=== PATIENT | female | born 1955 | race Caucasian/White ===

== ENCOUNTER 2017-09-07 08:13 | Observation (INO) | payer OTHER ==
[~2017-09-07 08:13] MED LIST: CEFAZOLIN 1 GM INJ
[2017-09-07 09:41] LABS: ADD MAN DIFF? NO
[2017-09-07 09:44] LABS: BASOPHIL # 0.1 10^3/ul (0.0-0.1); BASOPHILS % 0.6 % (0.0-2.0); EOSINOPHILS # 0.4 10^3/ul (0.0-0.5); EOSINOPHILS % 5.1 % (0.0-7.0); HEMATOCRIT 29.8 % (37.0-47.0); HEMOGLOBIN 9.6 g/dl (12.0-16.0); LYMPHOCYTES # 2.3 10^3/ul (0.8-2.9); LYMPHOCYTES % 28.8 % (15.0-51.0); MEAN CORPUSCULAR HEMOGLOBIN 28.2 pg (29.0-33.0); MEAN CORPUSCULAR HGB CONC 32.2 g/dl (32.0-37.0); MEAN CORPUSCULAR VOLUME 87.4 fl (82.0-101.0); MEAN PLATELET VOLUME 10.2 fl (7.4-10.4); MONOCYTE # 0.7 10^3/ul (0.3-0.9); MONOCYTES % 8.8 % (0.0-11.0); NEUTROPHIL # 4.4 10^3/ul (1.6-7.5); NEUTROPHILS % 56.3 % (39.0-77.0); PLATELET COUNT 249 10^3/UL (140-415); RED BLOOD COUNT 3.41 10^6/ul (4.20-5.40); RED CELL DISTRIBUTION WIDTH 15.5 % (11.5-14.5)
[2017-09-07 09:44] LABS: WHITE BLOOD COUNT 7.8 10^3/ul (4.8-10.8)
[2017-09-07 09:49] LABS: HOLD TRANSMISSIONS 1
[2017-09-07 10:05] LABS: INR 0.98; PROTIME 13.1 Sec (11.9-14.9)
[2017-09-07 10:06] LABS: PARTIAL THROMBOPLASTIN TIME 27.8 Sec (25.0-35.0)
[2017-09-07 10:16] LABS: ALANINE AMINOTRANSFERASE 39 IU/L (13-69); ALBUMIN/GLOBULIN RATIO 1.17; ALKALINE PHOSPHATASE 81 IU/L (42-121); ANION GAP 17 (8-16); ASPARTATE AMINO TRANSFERASE 15 IU/L (15-46); BLOOD UREA NITROGEN 18 mg/dl (7-20); CALCIUM 8.9 mg/dl (8.4-10.2); CARBON DIOXIDE 24 mmol/L (21-31); CHLORIDE 106 mmol/L (97-110); CREATININE 0.79 mg/dl (0.44-1.00); GLUCOSE 166 mg/dl (70-220); POTASSIUM 4.5 mmol/L (3.5-5.1); SODIUM 142 mmol/L (135-144); TOTAL PROTEIN 7.4 g/dl (6.1-8.1)
[2017-09-07] MEDS: SOD CHLORIDE 0.9% 1,000 ML IV (12:40)
[2017-09-07] MEDS ORDERED: PROPOFOL 20 ML (12:49)
[2017-09-07] MEDS ORDERED: MIDAZOLAM 1 MG/ML 2 ML INJ (12:49)
[2017-09-07] MEDS ORDERED: ROCURONIUM 50 MG INJ (12:49)
[2017-09-07] MEDS ORDERED: EPHEDrine SULFATE 50 MG/5 ML SYG (12:49)
[2017-09-07] MEDS ORDERED: SUCCINYLCHOLINE CHLORIDE 100 MG/5 ML SYG IV (12:49)
[2017-09-07] MEDS ORDERED: ONDANSETRON 4 MG INJ (12:50)
[2017-09-07] MEDS: CEFAZOLIN 2 GM/50 ML (PMX) 50 ML IVPB (13:15)
[2017-09-07] MEDS ORDERED: CLINDAMYCIN 600 MG/D5W (PMX) 50 ML IVPB (13:34)
[2017-09-07] MEDS ORDERED: ONDANSETRON 4 MG INJ IV (14:30)
[2017-09-07] MEDS: hydrALAzine 20 MG INJ IV (14:55)
[2017-09-07] MEDS: ONDANSETRON 4 MG INJ IV (14:56)
[2017-09-07] MEDS: HYDROmorphONE (0.2 MG/ML) 10ML SYG IV ×2 (14:56→15:07)
[2017-09-07] MEDS ORDERED: LABETALOL HCL 20MG INJ IV (15:00)
[2017-09-07] MEDS ORDERED: MEPERIDINE 25 MG INJ IV (15:00)
[2017-09-07] MEDS ORDERED: LORAZEPAM 2 MG INJ IV (15:00)
[2017-09-07] MEDS ORDERED: HYDROmorphONE (0.2 MG/ML) 10ML SYG IV (15:00)
[2017-09-07] MEDS ORDERED: FENTAnyl 50 MCG/ML VIAL IV ×2 (15:00)
[2017-09-07] MEDS ORDERED: METOCLOPRAMIDE 10 MG INJ IV (15:00)
[2017-09-07] MEDS: DIPHENHYDRAMINE 50 MG INJ IV (15:10)
[2017-09-07 16:25] LABS: HEMOGLOBIN A1C 8.4 % (0-5.9)
[2017-09-07] MEDS ORDERED: GLUCOSE GEL 15 GRAM TUBE BUCCAL (16:30)
[2017-09-07] MEDS ORDERED: GLUCAGON 1 MG INJ IM (16:30)
[2017-09-07] MEDS ORDERED: DEXTROSE 50% 50 ML SYRINGE IV ×2 (16:30)
[2017-09-07] MEDS ORDERED: GLUCOSE GEL 15 GRAM TUBE PO ×2 (16:30)
[2017-09-07] MEDS: metFORMIN 850 MG TAB PO ×2 (17:45→17:48)
[2017-09-07] MEDS: INSULIN ASPART [NOVOLOG] 3 ML PEN SC ×3 (17:47→21:49)
[2017-09-07] MEDS ORDERED: VITAMIN A & D 5 GM OINT PACKET TOP (17:56)
[2017-09-07] MEDS: morphine 2 MG INJ IV (19:52)
[2017-09-07] MEDS: BENAZEPRIL 20 MG TAB PO (21:00)
[2017-09-07] MEDS: INSULIN GLARGINE [LANtus] 3 ML PEN SC (21:50)
[2017-09-08] MEDS: ACCU-CHEK XX (02:00)
[2017-09-08 05:44] LABS: ADD MAN DIFF? NO
[2017-09-08 05:46] LABS: WHITE BLOOD COUNT 11.2 10^3/ul (4.8-10.8)
[2017-09-08 05:46] LABS: BASOPHIL # 0.1 10^3/ul (0.0-0.1); BASOPHILS % 0.5 % (0.0-2.0); EOSINOPHILS # 0.4 10^3/ul (0.0-0.5); EOSINOPHILS % 3.4 % (0.0-7.0); HEMATOCRIT 30.4 % (37.0-47.0); HEMOGLOBIN 9.7 g/dl (12.0-16.0); LYMPHOCYTES # 2.6 10^3/ul (0.8-2.9); LYMPHOCYTES % 23.5 % (15.0-51.0); MEAN CORPUSCULAR HEMOGLOBIN 28.4 pg (29.0-33.0); MEAN CORPUSCULAR HGB CONC 31.9 g/dl (32.0-37.0); MEAN CORPUSCULAR VOLUME 89.1 fl (82.0-101.0); MEAN PLATELET VOLUME 10.3 fl (7.4-10.4); MONOCYTE # 0.9 10^3/ul (0.3-0.9); MONOCYTES % 7.9 % (0.0-11.0); NEUTROPHIL # 7.2 10^3/ul (1.6-7.5); NEUTROPHILS % 64.4 % (39.0-77.0); PLATELET COUNT 266 10^3/UL (140-415); RED BLOOD COUNT 3.41 10^6/ul (4.20-5.40); RED CELL DISTRIBUTION WIDTH 15.9 % (11.5-14.5)
[2017-09-08 06:05] LABS: ANION GAP 17 (8-16); BLOOD UREA NITROGEN 17 mg/dl (7-20); CALCIUM 8.6 mg/dl (8.4-10.2); CARBON DIOXIDE 24 mmol/L (21-31); CHLORIDE 105 mmol/L (97-110); CREATININE 0.94 mg/dl (0.44-1.00); GLUCOSE 248 mg/dl (70-220); POTASSIUM 4.5 mmol/L (3.5-5.1); SODIUM 141 mmol/L (135-144)
[2017-09-08] MEDS: metFORMIN 850 MG TAB PO ×4 (07:47→18:30)
[2017-09-08] MEDS: INSULIN ASPART [NOVOLOG] 3 ML PEN SC ×7 (07:53→20:49)
[2017-09-08] MEDS: BENAZEPRIL 20 MG TAB PO ×2 (08:40→20:49)
[2017-09-08] MEDS ORDERED: NON-FORMULARY/PATIENT OWN MED (Liraglutide (Victoza 3-Pak) 1.8 MG) SQ (09:00)
[2017-09-08] MEDS: IBUPROFEN 600 MG TAB PO ×2 (11:04→20:49)
[2017-09-08] MEDS: INSULIN GLARGINE [LANtus] 3 ML PEN SC (20:54)
[2017-09-09] MEDS: ACCU-CHEK XX (02:00)
[2017-09-09 06:02] LABS: ADD MAN DIFF? NO
[2017-09-09 06:06] LABS: BASOPHIL # 0.1 10^3/ul (0.0-0.1); BASOPHILS % 0.7 % (0.0-2.0); EOSINOPHILS # 0.4 10^3/ul (0.0-0.5); HEMATOCRIT 27.6 % (37.0-47.0); HEMOGLOBIN 8.9 g/dl (12.0-16.0); LYMPHOCYTES # 2.5 10^3/ul (0.8-2.9); LYMPHOCYTES % 28.3 % (15.0-51.0); MEAN CORPUSCULAR HEMOGLOBIN 29.3 pg (29.0-33.0); MEAN CORPUSCULAR HGB CONC 32.2 g/dl (32.0-37.0); MEAN CORPUSCULAR VOLUME 90.8 fl (82.0-101.0); MEAN PLATELET VOLUME 10.3 fl (7.4-10.4); MONOCYTE # 0.8 10^3/ul (0.3-0.9); MONOCYTES % 9.5 % (0.0-11.0); NEUTROPHILS % 56.2 % (39.0-77.0); PLATELET COUNT 232 10^3/UL (140-415); RED BLOOD COUNT 3.04 10^6/ul (4.20-5.40); RED CELL DISTRIBUTION WIDTH 16.1 % (11.5-14.5)
[2017-09-09 06:06] LABS: WHITE BLOOD COUNT 8.8 10^3/ul (4.8-10.8)
[2017-09-09 06:33] LABS: ANION GAP 14 (8-16); BLOOD UREA NITROGEN 24 mg/dl (7-20); CALCIUM 8.9 mg/dl (8.4-10.2); CARBON DIOXIDE 25 mmol/L (21-31); CHLORIDE 107 mmol/L (97-110); CREATININE 0.96 mg/dl (0.44-1.00); GLUCOSE 202 mg/dl (70-220); POTASSIUM 4.7 mmol/L (3.5-5.1); SODIUM 141 mmol/L (135-144)
[2017-09-09] MEDS: EMPAGLIFLOZIN 10 MG TABLET PO (08:02)
[2017-09-09] MEDS: BENAZEPRIL 20 MG TAB PO ×2 (08:02→20:37)
[2017-09-09] MEDS: INSULIN ASPART [NOVOLOG] 3 ML PEN SC ×8 (08:10→20:42)
[2017-09-09] MEDS: LINAGLIPTIN 5 MG TABLET PO (08:13)
[2017-09-09] MEDS: metFORMIN 850 MG TAB PO ×3 (08:15→17:39)
[2017-09-09] MEDS: INSULIN GLARGINE [LANtus] 3 ML PEN SC (20:41)
[2017-09-10] MEDS: ACCU-CHEK XX (02:00)
[2017-09-10 06:07] LABS: ADD MAN DIFF? NO
[2017-09-10 06:23] LABS: WHITE BLOOD COUNT 10.2 10^3/ul (4.8-10.8)
[2017-09-10 06:23] LABS: BASOPHIL # 0.1 10^3/ul (0.0-0.1); BASOPHILS % 0.5 % (0.0-2.0); EOSINOPHILS # 0.4 10^3/ul (0.0-0.5); LYMPHOCYTES # 2.4 10^3/ul (0.8-2.9); LYMPHOCYTES % 23.2 % (15.0-51.0); MEAN CORPUSCULAR HEMOGLOBIN 28.8 pg (29.0-33.0); MEAN CORPUSCULAR HGB CONC 32.1 g/dl (32.0-37.0); MEAN CORPUSCULAR VOLUME 89.7 fl (82.0-101.0); MEAN PLATELET VOLUME 10.2 fl (7.4-10.4); MONOCYTE # 0.9 10^3/ul (0.3-0.9); MONOCYTES % 8.9 % (0.0-11.0); NEUTROPHIL # 6.4 10^3/ul (1.6-7.5); PLATELET COUNT 256 10^3/UL (140-415); RED BLOOD COUNT 3.12 10^6/ul (4.20-5.40); RED CELL DISTRIBUTION WIDTH 16.2 % (11.5-14.5)
[2017-09-10 06:41] LABS: ANION GAP 14 (8-16); BLOOD UREA NITROGEN 19 mg/dl (7-20); CALCIUM 9.2 mg/dl (8.4-10.2); CARBON DIOXIDE 27 mmol/L (21-31); CHLORIDE 107 mmol/L (97-110); CREATININE 0.87 mg/dl (0.44-1.00); GLUCOSE 121 mg/dl (70-220); POTASSIUM 5.2 mmol/L (3.5-5.1); SODIUM 143 mmol/L (135-144)
[2017-09-10] MEDS: BENAZEPRIL 20 MG TAB PO ×2 (08:06→20:24)
[2017-09-10] MEDS: LINAGLIPTIN 5 MG TABLET PO (08:07)
[2017-09-10] MEDS: metFORMIN 850 MG TAB PO ×3 (08:07→17:32)
[2017-09-10] MEDS: INSULIN ASPART [NOVOLOG] 3 ML PEN SC ×7 (08:12→20:39)
[2017-09-10] MEDS: EMPAGLIFLOZIN 10 MG TABLET PO (08:14)
[2017-09-10] MEDS: INSULIN GLARGINE [LANtus] 3 ML PEN SC ×2 (20:00→21:03)
[2017-09-10] MEDS: IBUPROFEN 600 MG TAB PO (20:23)
[2017-09-11] MEDS: ACCU-CHEK XX (02:00)
[2017-09-11 05:53] LABS: ADD MAN DIFF? NO
[2017-09-11 06:11] LABS: BASOPHIL # 0.1 10^3/ul (0.0-0.1); BASOPHILS % 0.6 % (0.0-2.0); EOSINOPHILS # 0.5 10^3/ul (0.0-0.5); EOSINOPHILS % 4.9 % (0.0-7.0); HEMATOCRIT 27.7 % (37.0-47.0); HEMOGLOBIN 8.9 g/dl (12.0-16.0); LYMPHOCYTES # 2.8 10^3/ul (0.8-2.9); LYMPHOCYTES % 29.4 % (15.0-51.0); MEAN CORPUSCULAR HEMOGLOBIN 28.9 pg (29.0-33.0); MEAN CORPUSCULAR HGB CONC 32.1 g/dl (32.0-37.0); MEAN CORPUSCULAR VOLUME 89.9 fl (82.0-101.0); MEAN PLATELET VOLUME 10.2 fl (7.4-10.4); MONOCYTES % 10.6 % (0.0-11.0); NEUTROPHIL # 5.1 10^3/ul (1.6-7.5); NEUTROPHILS % 54.1 % (39.0-77.0); PLATELET COUNT 264 10^3/UL (140-415); RED BLOOD COUNT 3.08 10^6/ul (4.20-5.40); RED CELL DISTRIBUTION WIDTH 16.3 % (11.5-14.5)
[2017-09-11 06:11] LABS: WHITE BLOOD COUNT 9.4 10^3/ul (4.8-10.8)
[2017-09-11 06:31] LABS: ANION GAP 16 (8-16); BLOOD UREA NITROGEN 23 mg/dl (7-20); CALCIUM 8.7 mg/dl (8.4-10.2); CARBON DIOXIDE 23 mmol/L (21-31); CHLORIDE 107 mmol/L (97-110); CREATININE 0.97 mg/dl (0.44-1.00); GLUCOSE 144 mg/dl (70-220); POTASSIUM 4.5 mmol/L (3.5-5.1); SODIUM 141 mmol/L (135-144)
[2017-09-11] MEDS: EMPAGLIFLOZIN 10 MG TABLET PO (07:54)
[2017-09-11] MEDS: metFORMIN 850 MG TAB PO ×2 (07:55→12:18)
[2017-09-11] MEDS: INSULIN ASPART [NOVOLOG] 3 ML PEN SC ×4 (07:58→12:24)
[2017-09-11] MEDS: LINAGLIPTIN 5 MG TABLET PO (08:00)
[2017-09-11] MEDS: BENAZEPRIL 20 MG TAB PO (08:01)
== END 2017-09-11 16:55 | disposition home or self-care (01) ==
LOC: SDS 08:13 → REC 14:50 → MS2 15:57
PROVIDERS: Surgery Surgical Oncology
DX: N64.1 Fat necrosis of breast (principal); L90.5 Scar conditions and fibrosis of skin; E11.65 Type 2 diabetes mellitus with hyperglycemia; Z79.4 Long term (current) use of insulin; I10 Essential (primary) hypertension; E66.01 Morbid (severe) obesity due to excess calories; Z68.43 Body mass index [BMI] 50.0-59.9, adult; E78.5 Hyperlipidemia, unspecified; M19.90 Unspecified osteoarthritis, unspecified site; Z85.3 Personal history of malignant neoplasm of breast; Z83.3 Family history of diabetes mellitus
CPT/HCPCS: 19303; 71045; 80048; 80053; 82962; 83036; 85025; 85610; 85730; 88307; 93005; 99217

== ENCOUNTER 2018-01-15 08:56 | Inpatient (IN) | payer OTHER ==
[2018-01-15] MEDS: CEFAZOLIN 2 GM/50 ML (PMX) 50 ML IVPB (09:00)
[2018-01-15] MEDS: INSULIN REGULAR, HUMAN 100 UNIT/1 ML 3ML VIAL SC (10:38)
[2018-01-15] MEDS: SOD CHLORIDE 0.9% 1,000 ML IV (10:40)
[2018-01-15] MEDS ORDERED: PROPOFOL 100 ML (11:13)
[2018-01-15] MEDS ORDERED: OXYCODONE/ACETAMINOPHEN (5/325) TAB PO ×2 (11:30)
[2018-01-15] MEDS ORDERED: LABETALOL HCL 20MG INJ IV (11:30)
[2018-01-15] MEDS ORDERED: hydrALAzine 20 MG INJ IV (11:30)
[2018-01-15] MEDS ORDERED: METOCLOPRAMIDE 10 MG INJ IV (11:30)
[2018-01-15] MEDS ORDERED: EPHEDrine SULFATE 50 MG/5 ML SYG IV (11:30)
[2018-01-15] MEDS ORDERED: HYDROmorphONE 1 MG/5 ML IV SYRINGE IV ×2 (11:30)
[2018-01-15] MEDS ORDERED: ALBUTEROL 0.083% (NEB) 2.5 MG/3 ML AMP HHN (11:30)
[2018-01-15] MEDS ORDERED: ONDANSETRON 4 MG INJ IV ×2 (11:30→12:30)
[2018-01-15] MEDS: INSULIN ASPART [NOVOLOG] 3 ML PEN SC ×4 (11:30→23:40)
[2018-01-15] MEDS ORDERED: FENTAnyl 50 MCG/ML VIAL IV ×3 (11:30)
[2018-01-15] MEDS ORDERED: DIPHENHYDRAMINE 50 MG INJ IV (11:30)
[2018-01-15] MEDS ORDERED: PHENYLephrine (100 MCG/ML) 5ML SYG (11:42)
[2018-01-15] MEDS ORDERED: DEXAMETHASONE 4 MG/ML 1 ML INJ (11:48)
[2018-01-15] MEDS ORDERED: ONDANSETRON 4 MG INJ (11:49)
[2018-01-15] MEDS: D5W-0.45 NACL + KCL 20 MEQ 1,000 ML IV (12:26)
[2018-01-15] MEDS ORDERED: ACETAMINOPHEN 1000MG/100ML IV 100 ML IVPB (12:30)
[2018-01-15] MEDS ORDERED: ACETAMINOPHEN 1000MG/100ML IV 100 ML (12:34)
[2018-01-15] MEDS ORDERED: CEFAZOLIN 1 GM INJ (12:35)
[2018-01-15] MEDS: HYDROmorphONE 1 MG/5 ML IV SYRINGE IV (13:14)
[2018-01-15] MEDS: MEPERIDINE 25 MG INJ IV (13:15)
[2018-01-15] MEDS: SOD CHLORIDE 0.45% 1,000 ML IV (16:43)
[2018-01-15] MEDS ORDERED: GLUCAGON 1 MG INJ IM (17:00)
[2018-01-15] MEDS ORDERED: DEXTROSE 50% 50 ML SYRINGE IV ×2 (17:00)
[2018-01-15] MEDS ORDERED: GLUCOSE GEL 15 GRAM TUBE PO ×2 (17:00)
[2018-01-15] MEDS ORDERED: GLUCOSE GEL 15 GRAM TUBE BUCCAL (17:00)
[2018-01-15] MEDS: BENAZEPRIL 20 MG TAB PO (22:58)
[2018-01-15] MEDS: LETROZOLE 2.5 MG TAB PO (22:59)
[2018-01-15] MEDS: morphine 2 MG INJ IV (23:01)
[2018-01-16] MEDS: SOD CHLORIDE 0.45% 1,000 ML IV (06:22)
[2018-01-16] MEDS: INSULIN ASPART [NOVOLOG] 3 ML PEN SC ×7 (08:45→20:47)
[2018-01-16] MEDS: LETROZOLE 2.5 MG TAB PO (08:47)
[2018-01-16] MEDS: BENAZEPRIL 20 MG TAB PO ×2 (08:48→20:48)
[2018-01-16] MEDS ORDERED: LETROZOLE 2.5 MG TAB PO (09:00)
[2018-01-16] MEDS: morphine 2 MG INJ IV (12:34)
[2018-01-16 12:36] LABS: ADD MAN DIFF? NO
[2018-01-16 12:40] LABS: BASOPHIL # 0.1 10^3/ul (0.0-0.1); BASOPHILS % 0.8 % (0.0-2.0); EOSINOPHILS # 0.3 10^3/ul (0.0-0.5); EOSINOPHILS % 2.7 % (0.0-7.0); HEMATOCRIT 31.7 % (37.0-47.0); HEMOGLOBIN 10.4 g/dl (12.0-16.0); LYMPHOCYTES # 2.1 10^3/ul (0.8-2.9); LYMPHOCYTES % 17.8 % (15.0-51.0); MEAN CORPUSCULAR HEMOGLOBIN 30.8 pg (29.0-33.0); MEAN CORPUSCULAR HGB CONC 32.8 g/dl (32.0-37.0); MEAN CORPUSCULAR VOLUME 93.8 fl (82.0-101.0); MEAN PLATELET VOLUME 10.3 fl (7.4-10.4); MONOCYTE # 1.1 10^3/ul (0.3-0.9); MONOCYTES % 9.8 % (0.0-11.0); NEUTROPHILS % 68.6 % (39.0-77.0); PLATELET COUNT 242 10^3/UL (140-415); RED BLOOD COUNT 3.38 10^6/ul (4.20-5.40); RED CELL DISTRIBUTION WIDTH 17.1 % (11.5-14.5)
[2018-01-16 12:40] LABS: WHITE BLOOD COUNT 11.7 10^3/ul (4.8-10.8)
[2018-01-16 13:01] LABS: ANION GAP 15 (8-16); BLOOD UREA NITROGEN 25 mg/dl (7-20); CALCIUM 8.8 mg/dl (8.4-10.2); CARBON DIOXIDE 21 mmol/L (21-31); CHLORIDE 105 mmol/L (97-110); CREATININE 0.77 mg/dl (0.44-1.00); GLUCOSE 236 mg/dl (70-220); POTASSIUM 4.2 mmol/L (3.5-5.1); SODIUM 137 mmol/L (135-144)
[2018-01-16] MEDS: ACETAMINOPHEN 325 MG TAB PO ×2 (13:53→21:54)
[2018-01-17 05:18] LABS: ADD MAN DIFF? NO
[2018-01-17 05:37] LABS: BASOPHIL # 0.1 10^3/ul (0.0-0.1); BASOPHILS % 1.3 % (0.0-2.0); EOSINOPHILS # 0.4 10^3/ul (0.0-0.5); EOSINOPHILS % 6.4 % (0.0-7.0); HEMATOCRIT 33.4 % (37.0-47.0); HEMOGLOBIN 10.3 g/dl (12.0-16.0); LYMPHOCYTES # 1.9 10^3/ul (0.8-2.9); LYMPHOCYTES % 27.5 % (15.0-51.0); MEAN CORPUSCULAR HGB CONC 30.8 g/dl (32.0-37.0); MEAN CORPUSCULAR VOLUME 97.4 fl (82.0-101.0); MEAN PLATELET VOLUME 10.4 fl (7.4-10.4); MONOCYTE # 0.7 10^3/ul (0.3-0.9); MONOCYTES % 9.7 % (0.0-11.0); NEUTROPHIL # 3.8 10^3/ul (1.6-7.5); NEUTROPHILS % 54.8 % (39.0-77.0); PLATELET COUNT 243 10^3/UL (140-415); RED BLOOD COUNT 3.43 10^6/ul (4.20-5.40); RED CELL DISTRIBUTION WIDTH 17.7 % (11.5-14.5)
[2018-01-17 05:37] LABS: WHITE BLOOD COUNT 6.9 10^3/ul (4.8-10.8)
[2018-01-17 06:25] LABS: ANION GAP 12 (8-16); BLOOD UREA NITROGEN 19 mg/dl (7-20); CALCIUM 8.7 mg/dl (8.4-10.2); CARBON DIOXIDE 23 mmol/L (21-31); CHLORIDE 107 mmol/L (97-110); GLUCOSE 219 mg/dl (70-220); POTASSIUM 4.4 mmol/L (3.5-5.1); SODIUM 138 mmol/L (135-144)
[2018-01-17 06:37] LABS: POSITIVE DIFF @See below
[2018-01-17] MEDS: INSULIN ASPART [NOVOLOG] 3 ML PEN SC ×7 (08:10→20:19)
[2018-01-17] MEDS: LETROZOLE 2.5 MG TAB PO (09:20)
[2018-01-17] MEDS: BENAZEPRIL 20 MG TAB PO ×2 (09:26→20:16)
[2018-01-17] MEDS: ACETAMINOPHEN 325 MG TAB PO (09:26)
[2018-01-17] MEDS: IBUPROFEN 400 MG TAB PO (18:01)
[2018-01-17] MEDS: INSULIN GLARGINE [LANTus] (100 UNITS/ML) SYG SC (21:47)
[2018-01-18] MEDS: IBUPROFEN 400 MG TAB PO ×4 (00:01→22:07)
[2018-01-18 05:22] LABS: ADD MAN DIFF? NO
[2018-01-18 05:27] LABS: BASOPHIL # 0.1 10^3/ul (0.0-0.1); BASOPHILS % 0.8 % (0.0-2.0); EOSINOPHILS # 0.5 10^3/ul (0.0-0.5); EOSINOPHILS % 6.8 % (0.0-7.0); HEMATOCRIT 32.1 % (37.0-47.0); HEMOGLOBIN 10.1 g/dl (12.0-16.0); LYMPHOCYTES # 1.8 10^3/ul (0.8-2.9); LYMPHOCYTES % 23.8 % (15.0-51.0); MEAN CORPUSCULAR HEMOGLOBIN 29.4 pg (29.0-33.0); MEAN CORPUSCULAR HGB CONC 31.5 g/dl (32.0-37.0); MEAN CORPUSCULAR VOLUME 93.3 fl (82.0-101.0); MEAN PLATELET VOLUME 10.4 fl (7.4-10.4); MONOCYTE # 0.9 10^3/ul (0.3-0.9); MONOCYTES % 11.3 % (0.0-11.0); NEUTROPHIL # 4.4 10^3/ul (1.6-7.5); NEUTROPHILS % 56.8 % (39.0-77.0); PLATELET COUNT 251 10^3/UL (140-415); RED BLOOD COUNT 3.44 10^6/ul (4.20-5.40); RED CELL DISTRIBUTION WIDTH 17.4 % (11.5-14.5)
[2018-01-18 05:27] LABS: WHITE BLOOD COUNT 7.7 10^3/ul (4.8-10.8)
[2018-01-18 05:43] LABS: ANION GAP 14 (8-16); BLOOD UREA NITROGEN 20 mg/dl (7-20); CARBON DIOXIDE 23 mmol/L (21-31); CHLORIDE 106 mmol/L (97-110); CREATININE 0.72 mg/dl (0.44-1.00); GLUCOSE 265 mg/dl (70-220); POTASSIUM 4.4 mmol/L (3.5-5.1); SODIUM 139 mmol/L (135-144)
[2018-01-18] MEDS: INSULIN ASPART [NOVOLOG] 3 ML PEN SC ×7 (08:19→21:00)
[2018-01-18] MEDS: LETROZOLE 2.5 MG TAB PO (08:20)
[2018-01-18] MEDS: metFORMIN 850 MG TAB PO (08:21)
[2018-01-18] MEDS: BENAZEPRIL 20 MG TAB PO ×2 (08:21→21:00)
[2018-01-18] MEDS ORDERED: morphine LIQ (10 MG/5 ML) CUP PO (16:00)
[2018-01-18] MEDS: LINAGLIPTIN 5 MG TABLET PO (18:02)
[2018-01-18] MEDS: INSULIN GLARGINE [LANTus] (100 UNITS/ML) SYG SC (20:50)
[2018-01-18] MEDS: ACCU-CHEK XX (21:00)
[2018-01-19 05:28] LABS: ADD MAN DIFF? NO
[2018-01-19 05:35] LABS: BASOPHIL # 0.1 10^3/ul (0.0-0.1); BASOPHILS % 0.6 % (0.0-2.0); EOSINOPHILS # 0.5 10^3/ul (0.0-0.5); EOSINOPHILS % 6.6 % (0.0-7.0); HEMATOCRIT 32.7 % (37.0-47.0); HEMOGLOBIN 10.3 g/dl (12.0-16.0); LYMPHOCYTES # 1.8 10^3/ul (0.8-2.9); LYMPHOCYTES % 21.5 % (15.0-51.0); MEAN CORPUSCULAR HEMOGLOBIN 29.9 pg (29.0-33.0); MEAN CORPUSCULAR HGB CONC 31.5 g/dl (32.0-37.0); MEAN CORPUSCULAR VOLUME 94.8 fl (82.0-101.0); MEAN PLATELET VOLUME 10.5 fl (7.4-10.4); MONOCYTE # 0.8 10^3/ul (0.3-0.9); MONOCYTES % 10.1 % (0.0-11.0); NEUTROPHILS % 60.8 % (39.0-77.0); PLATELET COUNT 265 10^3/UL (140-415); RED BLOOD COUNT 3.45 10^6/ul (4.20-5.40); RED CELL DISTRIBUTION WIDTH 17.1 % (11.5-14.5)
[2018-01-19 05:35] LABS: WHITE BLOOD COUNT 8.2 10^3/ul (4.8-10.8)
[2018-01-19 06:07] LABS: ANION GAP 12 (8-16); BLOOD UREA NITROGEN 20 mg/dl (7-20); CALCIUM 8.8 mg/dl (8.4-10.2); CARBON DIOXIDE 26 mmol/L (21-31); CHLORIDE 103 mmol/L (97-110); CREATININE 0.75 mg/dl (0.44-1.00); GLUCOSE 237 mg/dl (70-220); POTASSIUM 4.9 mmol/L (3.5-5.1); SODIUM 136 mmol/L (135-144)
[2018-01-19] MEDS: metFORMIN 850 MG TAB PO ×2 (08:11→18:03)
[2018-01-19] MEDS: ACCU-CHEK XX ×4 (08:11→20:39)
[2018-01-19] MEDS: LINAGLIPTIN 5 MG TABLET PO (08:11)
[2018-01-19] MEDS: INSULIN ASPART [NOVOLOG] 3 ML PEN SC ×7 (08:12→20:38)
[2018-01-19] MEDS: LETROZOLE 2.5 MG TAB PO (08:14)
[2018-01-19] MEDS: BENAZEPRIL 20 MG TAB PO ×2 (08:15→20:42)
[2018-01-19] MEDS: IBUPROFEN 400 MG TAB PO ×2 (08:15→15:24)
[2018-01-19] MEDS: INSULIN GLARGINE [LANTus] (100 UNITS/ML) SYG SC (20:43)
[2018-01-20 05:09] LABS: ADD MAN DIFF? NO
[2018-01-20 05:24] LABS: BASOPHIL # 0.1 10^3/ul (0.0-0.1); BASOPHILS % 0.7 % (0.0-2.0); EOSINOPHILS # 0.5 10^3/ul (0.0-0.5); EOSINOPHILS % 5.8 % (0.0-7.0); HEMATOCRIT 31.3 % (37.0-47.0); LYMPHOCYTES # 1.9 10^3/ul (0.8-2.9); LYMPHOCYTES % 20.4 % (15.0-51.0); MEAN CORPUSCULAR HGB CONC 31.9 g/dl (32.0-37.0); MEAN PLATELET VOLUME 10.1 fl (7.4-10.4); MONOCYTE # 0.8 10^3/ul (0.3-0.9); MONOCYTES % 8.8 % (0.0-11.0); NEUTROPHIL # 5.9 10^3/ul (1.6-7.5); PLATELET COUNT 272 10^3/UL (140-415); RED BLOOD COUNT 3.33 10^6/ul (4.20-5.40); RED CELL DISTRIBUTION WIDTH 17.1 % (11.5-14.5)
[2018-01-20 05:24] LABS: WHITE BLOOD COUNT 9.1 10^3/ul (4.8-10.8)
[2018-01-20 05:45] LABS: ANION GAP 13 (8-16); BLOOD UREA NITROGEN 20 mg/dl (7-20); CALCIUM 8.8 mg/dl (8.4-10.2); CARBON DIOXIDE 24 mmol/L (21-31); CHLORIDE 106 mmol/L (97-110); GLUCOSE 205 mg/dl (70-220); POTASSIUM 4.6 mmol/L (3.5-5.1); SODIUM 138 mmol/L (135-144)
[2018-01-20] MEDS: IBUPROFEN 400 MG TAB PO ×2 (05:58→14:59)
[2018-01-20] MEDS: metFORMIN 850 MG TAB PO ×2 (08:02→17:50)
[2018-01-20] MEDS: EMPAGLIFLOZIN 10 MG TABLET PO (08:03)
[2018-01-20] MEDS: INSULIN ASPART [NOVOLOG] 3 ML PEN SC ×6 (08:05→17:50)
[2018-01-20] MEDS: ACCU-CHEK XX ×3 (08:06→17:50)
[2018-01-20] MEDS: BENAZEPRIL 20 MG TAB PO (10:04)
[2018-01-20] MEDS: LINAGLIPTIN 5 MG TABLET PO (10:04)
[2018-01-20] MEDS: LETROZOLE 2.5 MG TAB PO (10:06)
== END 2018-01-20 19:25 | disposition home or self-care (01) | DRG 577 ==
LOC: SDS 08:56 → REC 12:26 → PP2 17:30
PROVIDERS: Surgery Surgical Oncology
PROC: 0HBT0ZZ Excision of Right Breast, Open Approach (ICD-10-PCS; principal; 2018-01-15 11:00)
PROC: 0HX5XZZ Transfer Chest Skin, External Approach (ICD-10-PCS; 2018-01-15 11:00)
DX: Z42.1 Encounter for breast reconstruction following mastectomy (principal); Z68.43 Body mass index [BMI] 50.0-59.9, adult; C50.912 Malignant neoplasm of unspecified site of left female breast; E66.9 Obesity, unspecified; Z90.12 Acquired absence of left breast and nipple; Z92.21 Personal history of antineoplastic chemotherapy; E11.65 Type 2 diabetes mellitus with hyperglycemia
CPT/HCPCS: 71045; 80048; 82962; 83036; 85025; 88307; 93005

== ENCOUNTER 2018-01-25 14:04 | Inpatient (IN) | payer OTHER ==
[2018-01-25 18:28] LABS: ADD MAN DIFF? NO
[2018-01-25 18:34] LABS: BASOPHIL # 0.1 10^3/ul (0.0-0.1); BASOPHILS % 0.5 % (0.0-2.0); EOSINOPHILS # 0.4 10^3/ul (0.0-0.5); EOSINOPHILS % 4.4 % (0.0-7.0); HEMATOCRIT 32.9 % (37.0-47.0); HEMOGLOBIN 10.3 g/dl (12.0-16.0); LYMPHOCYTES % 20.1 % (15.0-51.0); MEAN CORPUSCULAR HEMOGLOBIN 29.7 pg (29.0-33.0); MEAN CORPUSCULAR HGB CONC 31.3 g/dl (32.0-37.0); MEAN CORPUSCULAR VOLUME 94.8 fl (82.0-101.0); MEAN PLATELET VOLUME 10.1 fl (7.4-10.4); MONOCYTE # 0.9 10^3/ul (0.3-0.9); MONOCYTES % 8.7 % (0.0-11.0); NEUTROPHIL # 6.4 10^3/ul (1.6-7.5); NEUTROPHILS % 65.9 % (39.0-77.0); PLATELET COUNT 334 10^3/UL (140-415); RED BLOOD COUNT 3.47 10^6/ul (4.20-5.40); RED CELL DISTRIBUTION WIDTH 16.6 % (11.5-14.5)
[2018-01-25 18:34] LABS: WHITE BLOOD COUNT 9.7 10^3/ul (4.8-10.8)
[2018-01-25 18:47] LABS: INR 1.01; PARTIAL THROMBOPLASTIN TIME 24.5 Sec (25.0-35.0); PROTIME 13.4 Sec (11.9-14.9)
[2018-01-25] MEDS: IBUPROFEN 800 MG TAB PO (18:55)
[2018-01-25 18:56] LABS: ALANINE AMINOTRANSFERASE 32 IU/L (13-69); ALBUMIN 3.8 g/dl (3.3-4.9); ALBUMIN/GLOBULIN RATIO 1.05; ALKALINE PHOSPHATASE 79 IU/L (42-121); ANION GAP 13 (8-16); ASPARTATE AMINO TRANSFERASE 26 IU/L (15-46); BILIRUBIN,INDIRECT 0.1 mg/dl (0-1.1); BILIRUBIN,TOTAL 0.1 mg/dl (0.2-1.3); BLOOD UREA NITROGEN 18 mg/dl (7-20); CALCIUM 9.1 mg/dl (8.4-10.2); CARBON DIOXIDE 24 mmol/L (21-31); CHLORIDE 105 mmol/L (97-110); CREATININE 0.86 mg/dl (0.44-1.00); GLUCOSE 210 mg/dl (70-220); LIPASE 386 U/L (23-300); POTASSIUM 4.3 mmol/L (3.5-5.1); SODIUM 138 mmol/L (135-144); TOTAL PROTEIN 7.4 g/dl (6.1-8.1)
[2018-01-25 18:59] LABS: LACTIC ACID 1.8 mmol/L (0.5-2.0)
[2018-01-25] MEDS: PIPER-TAZO 3.375 GM IV (PMX) 100 ML IVPB (19:56)
[2018-01-25] MEDS ORDERED: ONDANSETRON 4 MG INJ IV (20:00)
[2018-01-25] MEDS ORDERED: ACETAMINOPHEN 325 MG TAB PO (20:00)
[2018-01-25] MEDS: VANCOMYCIN 1 GM (PMX) 250 ML IVPB (20:38)
[2018-01-26] MEDS ORDERED: NACL 0.9% 3 ML SYG IV (01:30)
[2018-01-26] MEDS ORDERED: ONDANSETRON 4 MG INJ IV (01:30)
[2018-01-26] MEDS ORDERED: ALBUTEROL/IPRATROPIUM (NEB) 3 ML AMP HHN (01:30)
[2018-01-26] MEDS ORDERED: KETOROLAC 30 MG INJ IV (01:30)
[2018-01-26] MEDS ORDERED: HYDROCODONE/APAP (5/325) TAB PO (01:30)
[2018-01-26] MEDS: ACCU-CHEK XX (02:00)
[2018-01-26] MEDS: INSULIN ASPART [NOVOLOG] 3 ML PEN SC ×8 (03:00→20:51)
[2018-01-26] MEDS: SOD CHLORIDE 0.9% 1,000 ML IV ×2 (03:03→11:22)
[2018-01-26] MEDS: BENAZEPRIL 20 MG TAB PO ×3 (03:26→20:52)
[2018-01-26] MEDS: IBUPROFEN 600 MG TAB PO (03:26)
[2018-01-26] MEDS: INSULIN GLARGINE [LANTus] (100 UNITS/ML) SYG SC ×2 (03:38→20:58)
[2018-01-26 04:39] LABS: ADD UMIC YES; UR ASCORBIC ACID NEGATIVE (NEGATIVE); UR BILIRUBIN (Dip) NEGATIVE (NEGATIVE); UR BLOOD (Dip) NEGATIVE (NEGATIVE); UR CLARITY CLEAR (CLEAR); UR COLOR STRAW (YELLOW); UR GLUCOSE (Dip) 3+ mg/dL (NEGATIVE); UR KETONES (Dip) NEGATIVE (NEGATIVE); UR LEUKOCYTE ESTERASE (Dip) TRACE Leu/ul (NEGATIVE); UR NITRITE (Dip) NEGATIVE (NEGATIVE); UR RBC 0 /HPF (0-5); UR SPECIFIC GRAVITY (Dip) 1.026 (1.003-1.030); UR TOTAL PROTEIN (Dip) NEGATIVE (NEGATIVE); UR UROBILINOGEN (Dip) NEGATIVE (NEGATIVE); UR WBC 7 /HPF (0-5)
[2018-01-26] MEDS ORDERED: INSULIN ASPART [NOVOLOG] 3 ML PEN SC (08:00)
[2018-01-26] MEDS: metFORMIN 850 MG TAB PO ×3 (08:24→17:45)
[2018-01-26] MEDS: EMPAGLIFLOZIN 10 MG TABLET PO (08:24)
[2018-01-26] MEDS: CEFEPIME 1GM/50 ML (PMX) 50 ML IVPB ×2 (08:25→20:52)
[2018-01-26] MEDS: HEPARIN 5,000 UNIT/0.5 ML VIAL SC ×2 (08:33→20:57)
[2018-01-26] MEDS ORDERED: VANCOMYCIN IV PER PHARMACY XX (09:00)
[2018-01-26] MEDS ORDERED: BENAZEPRIL 20 MG TAB PO (09:00)
[2018-01-26] MEDS ORDERED: NON-FORMULARY/PATIENT OWN MED (Liraglutide (Victoza 3-Pak) 1.8 MG) SQ (09:00)
[2018-01-26] MEDS: VANCOMYCIN 2 GM in SOD CHLORIDE 0.9% 500 ML IVPB (09:15)
[2018-01-26] MEDS: LETROZOLE 2.5 MG TAB PO (10:49)
[2018-01-26] MEDS: ACETAMINOPHEN 325 MG TAB PO ×2 (15:24→21:55)
[2018-01-26] MEDS ORDERED: INSULIN GLARGINE [LANTus] (100 UNITS/ML) SYG SC (21:00)
[2018-01-26] MEDS: VANCOMYCIN 1 GM 250 ML IVPB (23:23)
[2018-01-27] MEDS: ACCU-CHEK XX (02:00)
[2018-01-27 06:15] LABS: ADD MAN DIFF? NO
[2018-01-27 06:30] LABS: BASOPHILS % 0.6 % (0.0-2.0); EOSINOPHILS # 0.5 10^3/ul (0.0-0.5); EOSINOPHILS % 7.6 % (0.0-7.0); HEMATOCRIT 30.7 % (37.0-47.0); HEMOGLOBIN 9.6 g/dl (12.0-16.0); LYMPHOCYTES # 1.5 10^3/ul (0.8-2.9); LYMPHOCYTES % 20.8 % (15.0-51.0); MEAN CORPUSCULAR HEMOGLOBIN 29.8 pg (29.0-33.0); MEAN CORPUSCULAR HGB CONC 31.3 g/dl (32.0-37.0); MEAN CORPUSCULAR VOLUME 95.3 fl (82.0-101.0); MEAN PLATELET VOLUME 10.5 fl (7.4-10.4); MONOCYTE # 0.8 10^3/ul (0.3-0.9); MONOCYTES % 10.6 % (0.0-11.0); NEUTROPHIL # 4.3 10^3/ul (1.6-7.5); NEUTROPHILS % 59.8 % (39.0-77.0); PLATELET COUNT 303 10^3/UL (140-415); RED BLOOD COUNT 3.22 10^6/ul (4.20-5.40); RED CELL DISTRIBUTION WIDTH 16.3 % (11.5-14.5)
[2018-01-27 06:30] LABS: WHITE BLOOD COUNT 7.2 10^3/ul (4.8-10.8)
[2018-01-27 06:53] LABS: ALANINE AMINOTRANSFERASE 31 IU/L (13-69); ALBUMIN 3.2 g/dl (3.3-4.9); ALBUMIN/GLOBULIN RATIO 0.94; ALKALINE PHOSPHATASE 63 IU/L (42-121); ANION GAP 14 (8-16); ASPARTATE AMINO TRANSFERASE 23 IU/L (15-46); BILIRUBIN,INDIRECT 0.2 mg/dl (0-1.1); BILIRUBIN,TOTAL 0.2 mg/dl (0.2-1.3); BLOOD UREA NITROGEN 15 mg/dl (7-20); CALCIUM 8.9 mg/dl (8.4-10.2); CARBON DIOXIDE 22 mmol/L (21-31); CHLORIDE 110 mmol/L (97-110); CHOL/HDL RATIO 5.2 RATIO; CHOLESTEROL 156 mg/dl (100-200); CREATININE 0.76 mg/dl (0.44-1.00); GLUCOSE 125 mg/dl (70-220); HDL CHOLESTEROL 30 mg/dl (35-98); LDL CHOLESTEROL,CALCULATED 78 mg/dl; MAGNESIUM 1.7 mg/dl (1.7-2.5); PHOSPHORUS 5.3 mg/dl (2.5-4.9); POTASSIUM 4.2 mmol/L (3.5-5.1); SODIUM 142 mmol/L (135-144); TOTAL PROTEIN 6.6 g/dl (6.1-8.1); TRIGLYCERIDES 242 mg/dl (0-149)
[2018-01-27] MEDS: CEFEPIME 1GM/50 ML (PMX) 50 ML IVPB ×2 (08:24→20:58)
[2018-01-27] MEDS: metFORMIN 850 MG TAB PO ×3 (08:25→17:38)
[2018-01-27] MEDS: EMPAGLIFLOZIN 10 MG TABLET PO (08:25)
[2018-01-27] MEDS: BENAZEPRIL 20 MG TAB PO ×2 (08:26→21:00)
[2018-01-27 08:34] LABS: HEMOGLOBIN A1C 9.6 % (0-5.9)
[2018-01-27] MEDS: HEPARIN 5,000 UNIT/0.5 ML VIAL SC ×2 (08:36→21:08)
[2018-01-27] MEDS: LETROZOLE 2.5 MG TAB PO (08:36)
[2018-01-27] MEDS: INSULIN ASPART [NOVOLOG] 3 ML PEN SC ×7 (08:37→21:00)
[2018-01-27] MEDS: ACETAMINOPHEN 325 MG TAB PO ×2 (11:43→17:46)
[2018-01-27] MEDS: VANCOMYCIN 1 GM 250 ML IVPB (12:20)
[2018-01-27] MEDS: INSULIN GLARGINE [LANTus] (100 UNITS/ML) SYG SC (21:08)
[2018-01-27 23:52] LABS: VANCOMYCIN,TROUGH 15.7 ug/ml (10.0-20.0)
[2018-01-28] MEDS: VANCOMYCIN 1 GM 250 ML IVPB ×2 (00:27→12:38)
[2018-01-28] MEDS: ACCU-CHEK XX (00:30)
[2018-01-28] MEDS: INSULIN ASPART [NOVOLOG] 3 ML PEN SC ×7 (08:00→21:00)
[2018-01-28 08:02] LABS: ADD MAN DIFF? NO
[2018-01-28 08:18] LABS: WHITE BLOOD COUNT 7.3 10^3/ul (4.8-10.8)
[2018-01-28 08:18] LABS: BASOPHIL # 0.1 10^3/ul (0.0-0.1); EOSINOPHILS # 0.4 10^3/ul (0.0-0.5); EOSINOPHILS % 5.6 % (0.0-7.0); HEMATOCRIT 32.7 % (37.0-47.0); HEMOGLOBIN 10.5 g/dl (12.0-16.0); LYMPHOCYTES # 1.8 10^3/ul (0.8-2.9); LYMPHOCYTES % 23.9 % (15.0-51.0); MEAN CORPUSCULAR HEMOGLOBIN 30.1 pg (29.0-33.0); MEAN CORPUSCULAR HGB CONC 32.1 g/dl (32.0-37.0); MEAN CORPUSCULAR VOLUME 93.7 fl (82.0-101.0); MEAN PLATELET VOLUME 10.1 fl (7.4-10.4); MONOCYTE # 0.6 10^3/ul (0.3-0.9); MONOCYTES % 8.5 % (0.0-11.0); NEUTROPHIL # 4.4 10^3/ul (1.6-7.5); NEUTROPHILS % 60.5 % (39.0-77.0); PLATELET COUNT 327 10^3/UL (140-415); RED BLOOD COUNT 3.49 10^6/ul (4.20-5.40); RED CELL DISTRIBUTION WIDTH 16.1 % (11.5-14.5)
[2018-01-28 08:52] LABS: ANION GAP 13 (8-16); BLOOD UREA NITROGEN 15 mg/dl (7-20); CALCIUM 9.1 mg/dl (8.4-10.2); CARBON DIOXIDE 21 mmol/L (21-31); CHLORIDE 108 mmol/L (97-110); CREATININE 0.76 mg/dl (0.44-1.00); GLUCOSE 118 mg/dl (70-220); POTASSIUM 4.4 mmol/L (3.5-5.1); SODIUM 138 mmol/L (135-144)
[2018-01-28] MEDS: EMPAGLIFLOZIN 10 MG TABLET PO (09:19)
[2018-01-28] MEDS: metFORMIN 850 MG TAB PO ×3 (09:20→18:03)
[2018-01-28] MEDS: CEFEPIME 1GM/50 ML (PMX) 50 ML IVPB ×2 (09:20→21:20)
[2018-01-28] MEDS: BENAZEPRIL 20 MG TAB PO ×2 (09:20→21:24)
[2018-01-28] MEDS: HEPARIN 5,000 UNIT/0.5 ML VIAL SC ×2 (09:22→21:21)
[2018-01-28] MEDS: LETROZOLE 2.5 MG TAB PO (10:26)
[2018-01-28] MEDS: ACETAMINOPHEN 325 MG TAB PO (18:12)
[2018-01-28] MEDS: INSULIN GLARGINE [LANTus] (100 UNITS/ML) SYG SC (21:22)
[2018-01-29] MEDS: ACETAMINOPHEN 325 MG TAB PO ×2 (00:01→21:51)
[2018-01-29] MEDS: VANCOMYCIN 1 GM 250 ML IVPB ×2 (00:01→12:52)
[2018-01-29] MEDS: ACCU-CHEK XX (02:00)
[2018-01-29 06:00] LABS: ADD MAN DIFF? NO
[2018-01-29 06:07] LABS: BASOPHIL # 0.1 10^3/ul (0.0-0.1); BASOPHILS % 0.9 % (0.0-2.0); EOSINOPHILS # 0.4 10^3/ul (0.0-0.5); EOSINOPHILS % 4.9 % (0.0-7.0); HEMATOCRIT 30.2 % (37.0-47.0); HEMOGLOBIN 9.6 g/dl (12.0-16.0); LYMPHOCYTES # 1.9 10^3/ul (0.8-2.9); LYMPHOCYTES % 24.9 % (15.0-51.0); MEAN CORPUSCULAR HGB CONC 31.8 g/dl (32.0-37.0); MEAN CORPUSCULAR VOLUME 94.4 fl (82.0-101.0); MEAN PLATELET VOLUME 10.3 fl (7.4-10.4); MONOCYTE # 0.8 10^3/ul (0.3-0.9); MONOCYTES % 10.2 % (0.0-11.0); NEUTROPHIL # 4.5 10^3/ul (1.6-7.5); NEUTROPHILS % 58.6 % (39.0-77.0); PLATELET COUNT 301 10^3/UL (140-415); RED CELL DISTRIBUTION WIDTH 16.1 % (11.5-14.5)
[2018-01-29 06:07] LABS: WHITE BLOOD COUNT 7.7 10^3/ul (4.8-10.8)
[2018-01-29 07:03] LABS: ANION GAP 14 (8-16); BLOOD UREA NITROGEN 19 mg/dl (7-20); CALCIUM 8.8 mg/dl (8.4-10.2); CARBON DIOXIDE 21 mmol/L (21-31); CHLORIDE 111 mmol/L (97-110); CREATININE 0.79 mg/dl (0.44-1.00); GLUCOSE 134 mg/dl (70-220); POTASSIUM 4.3 mmol/L (3.5-5.1); SODIUM 142 mmol/L (135-144)
[2018-01-29] MEDS: BENAZEPRIL 20 MG TAB PO ×2 (08:45→21:13)
[2018-01-29] MEDS: metFORMIN 850 MG TAB PO ×3 (08:45→17:42)
[2018-01-29] MEDS: EMPAGLIFLOZIN 10 MG TABLET PO (08:45)
[2018-01-29] MEDS: CEFEPIME 1GM/50 ML (PMX) 50 ML IVPB ×2 (08:46→21:13)
[2018-01-29] MEDS: INSULIN ASPART [NOVOLOG] 3 ML PEN SC ×7 (08:47→21:00)
[2018-01-29] MEDS: HEPARIN 5,000 UNIT/0.5 ML VIAL SC ×2 (08:48→21:20)
[2018-01-29] MEDS: LETROZOLE 2.5 MG TAB PO (08:48)
[2018-01-29] MEDS: INSULIN GLARGINE [LANTus] (100 UNITS/ML) SYG SC (21:20)
[2018-01-30] MEDS: VANCOMYCIN 1 GM 250 ML IVPB (00:42)
[2018-01-30] MEDS: ACCU-CHEK XX (02:00)
[2018-01-30 06:50] LABS: ADD MAN DIFF? NO
[2018-01-30 07:00] LABS: WHITE BLOOD COUNT 7.4 10^3/ul (4.8-10.8)
[2018-01-30 07:00] LABS: BASOPHIL # 0.1 10^3/ul (0.0-0.1); BASOPHILS % 0.8 % (0.0-2.0); EOSINOPHILS # 0.4 10^3/ul (0.0-0.5); EOSINOPHILS % 5.2 % (0.0-7.0); HEMATOCRIT 31.1 % (37.0-47.0); HEMOGLOBIN 9.9 g/dl (12.0-16.0); LYMPHOCYTES # 1.7 10^3/ul (0.8-2.9); MEAN CORPUSCULAR HEMOGLOBIN 29.6 pg (29.0-33.0); MEAN CORPUSCULAR HGB CONC 31.8 g/dl (32.0-37.0); MEAN CORPUSCULAR VOLUME 93.1 fl (82.0-101.0); MEAN PLATELET VOLUME 9.8 fl (7.4-10.4); MONOCYTE # 0.6 10^3/ul (0.3-0.9); MONOCYTES % 8.3 % (0.0-11.0); NEUTROPHIL # 4.6 10^3/ul (1.6-7.5); NEUTROPHILS % 62.2 % (39.0-77.0); PLATELET COUNT 305 10^3/UL (140-415); RED BLOOD COUNT 3.34 10^6/ul (4.20-5.40); RED CELL DISTRIBUTION WIDTH 16.2 % (11.5-14.5)
[2018-01-30 07:47] LABS: ANION GAP 17 (8-16); BLOOD UREA NITROGEN 22 mg/dl (7-20); CARBON DIOXIDE 21 mmol/L (21-31); CHLORIDE 110 mmol/L (97-110); CREATININE 0.72 mg/dl (0.44-1.00); GLUCOSE 146 mg/dl (70-220); POTASSIUM 4.6 mmol/L (3.5-5.1); SODIUM 143 mmol/L (135-144)
[2018-01-30] MEDS: metFORMIN 850 MG TAB PO ×3 (08:24→17:46)
[2018-01-30] MEDS: EMPAGLIFLOZIN 10 MG TABLET PO (08:25)
[2018-01-30] MEDS: BENAZEPRIL 20 MG TAB PO ×2 (08:25→20:45)
[2018-01-30] MEDS: LETROZOLE 2.5 MG TAB PO (08:30)
[2018-01-30] MEDS: INSULIN ASPART [NOVOLOG] 3 ML PEN SC ×7 (08:30→20:46)
[2018-01-30] MEDS: HEPARIN 5,000 UNIT/0.5 ML VIAL SC ×2 (08:30→20:51)
[2018-01-30] MEDS: CEFEPIME 1GM/50 ML (PMX) 50 ML IVPB (09:51)
[2018-01-30] MEDS: CIPROFLOXACIN 500 MG TAB PO (17:46)
[2018-01-30] MEDS: ACETAMINOPHEN 325 MG TAB PO (20:46)
[2018-01-30] MEDS: INSULIN GLARGINE [LANTus] (100 UNITS/ML) SYG SC (20:50)
[2018-01-31] MEDS: ACCU-CHEK XX (02:00)
[2018-01-31] MEDS: CIPROFLOXACIN 500 MG TAB PO ×2 (06:04→17:48)
[2018-01-31] MEDS: metFORMIN 850 MG TAB PO ×3 (08:18→17:48)
[2018-01-31] MEDS: BENAZEPRIL 20 MG TAB PO ×2 (08:19→21:29)
[2018-01-31] MEDS: EMPAGLIFLOZIN 10 MG TABLET PO (08:20)
[2018-01-31] MEDS: INSULIN ASPART [NOVOLOG] 3 ML PEN SC ×7 (08:28→21:00)
[2018-01-31] MEDS: HEPARIN 5,000 UNIT/0.5 ML VIAL SC ×2 (08:29→21:41)
[2018-01-31] MEDS: LETROZOLE 2.5 MG TAB PO (09:33)
[2018-01-31] MEDS ORDERED: GLUCOSE GEL 15 GRAM TUBE BUCCAL (14:00)
[2018-01-31] MEDS ORDERED: GLUCAGON 1 MG INJ IM (14:00)
[2018-01-31] MEDS ORDERED: DEXTROSE 50% 50 ML SYRINGE IV ×2 (14:00)
[2018-01-31] MEDS ORDERED: GLUCOSE GEL 15 GRAM TUBE PO ×2 (14:00)
[2018-01-31 15:16] LABS: ADD MAN DIFF? NO
[2018-01-31 15:18] LABS: WHITE BLOOD COUNT 8.2 10^3/ul (4.8-10.8)
[2018-01-31 15:18] LABS: BASOPHIL # 0.1 10^3/ul (0.0-0.1); BASOPHILS % 0.9 % (0.0-2.0); EOSINOPHILS # 0.4 10^3/ul (0.0-0.5); EOSINOPHILS % 4.9 % (0.0-7.0); HEMOGLOBIN 10.3 g/dl (12.0-16.0); LYMPHOCYTES % 23.8 % (15.0-51.0); MEAN CORPUSCULAR HEMOGLOBIN 30.6 pg (29.0-33.0); MEAN CORPUSCULAR HGB CONC 32.2 g/dl (32.0-37.0); MEAN PLATELET VOLUME 9.8 fl (7.4-10.4); MONOCYTE # 0.8 10^3/ul (0.3-0.9); MONOCYTES % 9.1 % (0.0-11.0); NEUTROPHILS % 60.7 % (39.0-77.0); PLATELET COUNT 300 10^3/UL (140-415); RED BLOOD COUNT 3.37 10^6/ul (4.20-5.40); RED CELL DISTRIBUTION WIDTH 16.1 % (11.5-14.5)
[2018-01-31] MEDS: CEFEPIME 1GM/50 ML (PMX) 50 ML IVPB ×2 (15:27→22:32)
[2018-01-31 15:36] LABS: ANION GAP 14 (8-16); BLOOD UREA NITROGEN 19 mg/dl (7-20); CALCIUM 9.2 mg/dl (8.4-10.2); CARBON DIOXIDE 22 mmol/L (21-31); CHLORIDE 104 mmol/L (97-110); CREATININE 0.78 mg/dl (0.44-1.00); GLUCOSE 184 mg/dl (70-220); POTASSIUM 4.4 mmol/L (3.5-5.1); SODIUM 136 mmol/L (135-144)
[2018-01-31] MEDS: ACETAMINOPHEN 325 MG TAB PO (21:29)
[2018-01-31] MEDS: INSULIN GLARGINE [LANTus] (100 UNITS/ML) SYG SC (21:40)
[2018-02-01] MEDS: ACCU-CHEK XX (02:00)
[2018-02-01] MEDS: CIPROFLOXACIN 500 MG TAB PO ×2 (06:17→17:20)
[2018-02-01 06:34] LABS: ADD MAN DIFF? NO
[2018-02-01 06:38] LABS: WHITE BLOOD COUNT 8.2 10^3/ul (4.8-10.8)
[2018-02-01 06:38] LABS: BASOPHIL # 0.1 10^3/ul (0.0-0.1); EOSINOPHILS # 0.4 10^3/ul (0.0-0.5); EOSINOPHILS % 5.4 % (0.0-7.0); HEMATOCRIT 31.2 % (37.0-47.0); HEMOGLOBIN 9.8 g/dl (12.0-16.0); LYMPHOCYTES # 2.2 10^3/ul (0.8-2.9); LYMPHOCYTES % 26.6 % (15.0-51.0); MEAN CORPUSCULAR HEMOGLOBIN 29.5 pg (29.0-33.0); MEAN CORPUSCULAR HGB CONC 31.4 g/dl (32.0-37.0); MEAN PLATELET VOLUME 10.2 fl (7.4-10.4); MONOCYTE # 0.8 10^3/ul (0.3-0.9); NEUTROPHIL # 4.6 10^3/ul (1.6-7.5); NEUTROPHILS % 56.4 % (39.0-77.0); PLATELET COUNT 290 10^3/UL (140-415); RED BLOOD COUNT 3.32 10^6/ul (4.20-5.40); RED CELL DISTRIBUTION WIDTH 16.3 % (11.5-14.5)
[2018-02-01 07:04] LABS: ANION GAP 12 (8-16); BLOOD UREA NITROGEN 21 mg/dl (7-20); CARBON DIOXIDE 24 mmol/L (21-31); CHLORIDE 107 mmol/L (97-110); CREATININE 0.81 mg/dl (0.44-1.00); GLUCOSE 144 mg/dl (70-220); POTASSIUM 4.7 mmol/L (3.5-5.1); SODIUM 138 mmol/L (135-144)
[2018-02-01] MEDS: INSULIN ASPART [NOVOLOG] 3 ML PEN SC ×7 (08:30→20:56)
[2018-02-01] MEDS: metFORMIN 850 MG TAB PO ×3 (08:32→17:20)
[2018-02-01] MEDS: HEPARIN 5,000 UNIT/0.5 ML VIAL SC ×2 (08:33→21:06)
[2018-02-01] MEDS: LETROZOLE 2.5 MG TAB PO (08:34)
[2018-02-01] MEDS: BENAZEPRIL 20 MG TAB PO ×2 (08:38→20:58)
[2018-02-01] MEDS: CEFEPIME 1GM/50 ML (PMX) 50 ML IVPB ×2 (08:40→20:58)
[2018-02-01] MEDS: EMPAGLIFLOZIN 10 MG TABLET PO (10:23)
[2018-02-01] MEDS: NEOMYC/POLYMYX/BACIT 30 GM OINT TOP (21:07)
[2018-02-01] MEDS: INSULIN GLARGINE [LANTus] (100 UNITS/ML) SYG SC (21:07)
[2018-02-02] MEDS: ACCU-CHEK XX (01:34)
[2018-02-02] MEDS: CIPROFLOXACIN 500 MG TAB PO (05:18)
[2018-02-02 06:50] LABS: ADD MAN DIFF? NO
[2018-02-02 06:56] LABS: WHITE BLOOD COUNT 7.4 10^3/ul (4.8-10.8)
[2018-02-02 06:56] LABS: BASOPHIL # 0.1 10^3/ul (0.0-0.1); BASOPHILS % 0.8 % (0.0-2.0); EOSINOPHILS # 0.4 10^3/ul (0.0-0.5); EOSINOPHILS % 5.5 % (0.0-7.0); HEMATOCRIT 31.2 % (37.0-47.0); HEMOGLOBIN 9.8 g/dl (12.0-16.0); LYMPHOCYTES # 1.8 10^3/ul (0.8-2.9); LYMPHOCYTES % 23.8 % (15.0-51.0); MEAN CORPUSCULAR HEMOGLOBIN 29.9 pg (29.0-33.0); MEAN CORPUSCULAR HGB CONC 31.4 g/dl (32.0-37.0); MEAN CORPUSCULAR VOLUME 95.1 fl (82.0-101.0); MONOCYTE # 0.8 10^3/ul (0.3-0.9); MONOCYTES % 10.1 % (0.0-11.0); NEUTROPHIL # 4.4 10^3/ul (1.6-7.5); NEUTROPHILS % 59.3 % (39.0-77.0); PLATELET COUNT 295 10^3/UL (140-415); RED BLOOD COUNT 3.28 10^6/ul (4.20-5.40); RED CELL DISTRIBUTION WIDTH 16.2 % (11.5-14.5)
[2018-02-02] MEDS: CEFEPIME 1GM/50 ML (PMX) 50 ML IVPB (08:32)
[2018-02-02] MEDS: EMPAGLIFLOZIN 10 MG TABLET PO (08:33)
[2018-02-02] MEDS: metFORMIN 850 MG TAB PO ×2 (08:33→12:05)
[2018-02-02] MEDS: BENAZEPRIL 20 MG TAB PO (08:33)
[2018-02-02 08:39] LABS: ANION GAP 15 (8-16); BLOOD UREA NITROGEN 23 mg/dl (7-20); CALCIUM 9.1 mg/dl (8.4-10.2); CARBON DIOXIDE 21 mmol/L (21-31); CHLORIDE 109 mmol/L (97-110); CREATININE 0.79 mg/dl (0.44-1.00); GLUCOSE 147 mg/dl (70-220); POTASSIUM 4.8 mmol/L (3.5-5.1); SODIUM 140 mmol/L (135-144)
[2018-02-02] MEDS: HEPARIN 5,000 UNIT/0.5 ML VIAL SC (08:41)
[2018-02-02] MEDS: INSULIN ASPART [NOVOLOG] 3 ML PEN SC ×4 (08:41→12:07)
[2018-02-02] MEDS: NEOMYC/POLYMYX/BACIT 30 GM OINT TOP ×2 (09:00→12:58)
[2018-02-02] MEDS: LETROZOLE 2.5 MG TAB PO (12:06)
== END 2018-02-02 17:00 | disposition home or self-care (01) | DRG 863 ==
LOC: 2NE 20:01 → E/R 14:04 → 2NE 23:44
DX: T81.4XXA Infection following a procedure, initial encounter (principal); Z68.43 Body mass index [BMI] 50.0-59.9, adult; L03.319 Cellulitis of trunk, unspecified; E66.01 Morbid (severe) obesity due to excess calories; E11.9 Type 2 diabetes mellitus without complications; Z90.13 Acquired absence of bilateral breasts and nipples; Z85.3 Personal history of malignant neoplasm of breast; I10 Essential (primary) hypertension; E78.5 Hyperlipidemia, unspecified; E66.9 Obesity, unspecified
CPT/HCPCS: 36415; 76536; 80048; 80053; 80061; 80202; 81001; 82962; 83036; 83605; 83690; 83735; 84100; 85025; 85610; 85730; 87040; 87070; 87075; 96374; 99285-25